=== PATIENT | male | born 1960 | race Caucasian/White ===

== ENCOUNTER 2021-06-09 11:51 | Outpatient (CLI) | payer OTHER, SELFPAY ==
[2021-06-09 12:00] VITALS: BMI 29.3
--- NOTE | 2021-06-09 12:54 | ECG_ITS ---
[facility] Test Date: 2021-06-09 Pat Name: Axel Ramesh Department: Room: Gender: Male Business Process Coordinator: : 1960 Requested By: Marielena Hurtado Order Number: [id number] Barreto MD: Shanae Avelar M.D. Interpretive Statements NAME OF STUDY: TREADMILL STRESS TEST INDICATION: Family hx of cad Baseline blood pressure of 105/84 mm Hg, heart rate of 71 beats per minute and oxygen saturation of 95%. EKG showed with normal ST-Ts. The patient exercised for 8 minutes 25 seconds on a standard Roel protocol. Patient attained a maximum heart rate of 157 beats per minute(98% of the maximum predicted heart rate) with a blood pressure at the peak exercise of 159/72 mm Hg and oxygen saturation of 96%. The EKG at the peak exercise revealed sinus tachycardia with half millimeter upsloping ST depression in inferolateral leads not meeting diagnostic criteria for ischemia. Patient did not have any chest pain or any significant arrhythmis with the exercise. Study was terminated due to exertional fatigue and shortness of breath. During the recovery phase, there were no new changes. Blood pressure at the end of the recovery phase was 111/83 mm Hg with a heart rate of 88 beats per minute and oxygen saturation of 96%. CONCLUSION: 1. Normal EKG response to treadmill exercise 2. No exercise-induced chest pain or cardiac arrhythmia 3. Good exercise tolerance, attained a maximum of 10.2 METs. Maximum VO2 35.7 mL/kg/min. 4. Baseline normal blood pressure] with normal response to exercise. 5. Dasilva treadmill score of 6. This is suggestive of low risk. Electronically Signed On 06-13-2021 11:06:42 CDT by Shanae Avelar M.D. [id number]
[2021-06-09 13:48] VITALS: BP 111/73; PULSE 73
== END 2021-06-09 11:52 | disposition home or self-care (01) ==
LOC: CDL 11:54
PROVIDERS: PCP Nurse Practitioner Family; Visit Provider Nurse Practitioner
DX: I11.9 Hypertensive heart disease without heart failure (principal)
CPT/HCPCS: 93017

== ENCOUNTER → 2021-09-26 12:02 | Outpatient (BNVA) | payer OTHER, SELFPAY | PROVIDERS: PCP Nurse Practitioner Family; Visit Provider Surgery | DX: R19.5 Other fecal abnormalities (principal) | CPT/HCPCS: 87635 ==

== ENCOUNTER 2021-09-28 06:11 | Day surgery (SDC) | payer OTHER, SELFPAY ==
[2021-09-26 09:23] VITALS: BMI 28.8
[2021-09-28 06:27] VITALS: BP 120/72; PULSE 71; RESP 16; TEMP 36.4; O2SAT 97
--- NOTE | 2021-09-28 06:35 | P.HP_ITS ---
Same Day Surgery H&P Indication for Procedure/HPI DATE OF PROCEDURE: September 28, 2021 CHIEF COMPLAINT/INDICATIONFOR SURGICAL PROCEDURE: Blood in stool PREOP DIAGNOSIS: Screening colonoscopy PLANNED PROCEDRUE: Operation Date: 09/28/21 07:00 Proposed Procedures p Colonoscopy 906263 R19.5(Not Applicable) - Mehrdad Hightower MD 08/04/2021 This is a pleasant 61 years old gentleman never had a colonoscopy before. Patient reports no change in bowel movements or nonintentional weight loss and he was tested for occult blood in stool, patient is referred for colonoscopy. Interim history 09/28/2021 Patient comes today for screening colonoscopy ROS All systems have been reviewed negative except as per the above or per problem list Medications/Allergies* Home Medications Medication Instructions Recorded Confirmed Type lisinopril 10 1 tab PO DAILY 08/04/21 09/28/21 History mg-hydrochlorothiazide 12.5 mg tablet metformin 500 mg tablet 500 mg PO DAILY 08/04/21 09/28/21 History omega-3 fatty acids 500 mg capsule 500 mg PO DAILY 08/04/21 09/28/21 History aspirin [Aspir-81] 81 mg PO DAILY 09/26/21 09/26/21 History Allergies/Adverse Reactions Allergy/AdvReac Type Severity Reaction Status Date / Time No Known Allergies Allergy Verified 09/28/21 06:35 Pertinent History/Comorbid Conditions* Family History (Updated 06/09/21 @ 13:50 by Jose Guadalupe Medel RN) CAD (coronary artery disease) Social History Smoking and tobacco status: never smoked Pertinent Exam Findings alert, oriented x 3, regular rate & rhythm and procedure specific exam findings (Abdominal examination nontender nondistended soft) Recommendations Surgery/Procedure today (Colonoscopy with possible biopsy) Other Plans: Plan of care; After thorough history and physical examination and reviewing the chart, plan to perform screening colonoscopy. I discussed with the patient in details the risks,benefits,alternatives and indications.The risk of aspiration, bleeding, soft tissue injury, perforation of the colon and other potential concomitant complications were explained to the patient in details,also the potential need for Laproscoy/Laparotomy to repair any related complications including but not limited to colectomy and or Closotomy.The patient understood this well and did agree to proceed. Rationale was carefully and clearly discussed with the patient.Appropriate informed consent have been reviewed and signed All questions have been answered and all concerns have been addressed to patient's satisfaction. 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
[2021-09-28] MEDS: sodium chloride 0.9% 1,000 ML 30 ML IV (06:36)
--- NOTE | 2021-09-28 06:56 | ANES.PREANE2 ---
Pre-Anesthetic Assessment Pre-Anesthetic Assessment: Height/Weight: Height 1.75 m Weight 88.451 kg Temp Pulse Resp BP Pulse Ox 97.6 F 71 16 120/72 97 09/28/21 06:27 09/28/21 06:27 09/28/21 06:27 09/28/21 06:27 09/28/21 06:27 Preop Diagnosis: Screening colonoscopy Proposed Procedure: Operation Date: 09/28/21 07:00 Proposed Procedures p Colonoscopy 272141 R19.5(Not Applicable) - Mehrdad Hightower MD Was Beta German taken within 24 hours: N/A Was Clonidine taken within 24 hours: N/A Last intake: Intake Last Liquid Date 09/27/21 Last Liquid Time 20:00 Last Solid Date 09/26/21 Last Solid Time 00:00 Social: Social History: No alcohol and No tobacco Exam: Pre-Anes Outpt Exam: alert, oriented x 3, clear to auscultation bilaterally and regular rate & rhythm Airway: Submandibular: WNL Cervical ROM: WNL MP: 2 Dentition: Full History/ROS: No significant history except as noted and No significant complaints Pulmonary: Pulmonary: None reported CV/HEM: CV/HEM: HTN : : None reported Hepatic: Hepatic: None reported GI: GI: None reported Metabolic: Metabolic: None reported Musc/skel: Musc/skel: None reported Neuropsych: Neuropsych: None reported Anesthetic Plan: ASA status: 2 Anesthesia: Anesthesia Evaluation and MAC Risk of > 500 ml blood loss (7ml/kg in children): No Meds/Allergies Current Medications: Current Medications Generic Name Dose Route Start Last Admin Trade Name Freq PRN Reason Stop Dose Admin Sodium Chloride 1,000 mls @ 30 ml s/hr 09/28/21 06:15 09/28/21 06:36 Sodium Chloride 0.9% IV 30 mls/hr .Q24H SUMAN Administration PFSH Anesthesia PFSH: Family History Other CAD (coronary artery disease) Social History Smoking and tobacco status: never smoked Data Anesthesia Cardiac Studies: No Data to Display
[2021-09-28 07:18] VITALS: BP 96/67; PULSE 76; RESP 16; TEMP 36.3; O2SAT 97
[2021-09-28 07:32] VITALS: BP 115/71; PULSE 67; RESP 18; O2SAT 95
--- NOTE | 2021-09-28 14:59 | ANE.PACU2 ---
Inpatient post-anesthesia follow up: Airway intact: Yes Vital signs: Temperature 97.3 F Pulse Rate 67 Respiratory Rate 18 Blood Pressure 115/71 Pulse Oximetry 95 Oxygen Delivery Me thod Room Air Oxygen Flow Rate Fraction of Inspir ed Oxygen Hydration adequate: Yes Nausea and vomiting: No Pain level: 1 Mental status: Baseline
== END 2021-09-28 07:48 | disposition home or self-care (01) ==
PROVIDERS: PCP Nurse Practitioner Family; Visit Provider Surgery
PROC: 0DJD8ZZ Inspection of Lower Intestinal Tract, Via Natural or Artificial Opening Endoscopic (ICD-10-PCS; CPT 45378; principal; 2021-09-28 07:00)
DX: R19.5 Other fecal abnormalities (principal); Z79.84 Long term (current) use of oral hypoglycemic drugs; Z79.82 Long term (current) use of aspirin; Z82.49 Family history of ischemic heart disease and other diseases of the circulatory system; K57.30 Diverticulosis of large intestine without perforation or abscess without bleeding; I10 Essential (primary) hypertension
CPT/HCPCS: 45378; 96360; J2370; J2704; J7030

== ENCOUNTER → 2022-07-13 14:51 | Outpatient (BNVA) | payer OTHER, SELFPAY | PROVIDERS: PCP Nurse Practitioner Family; Visit Provider Surgery | DX: R13.10 Dysphagia, unspecified (principal) | CPT/HCPCS: 99213 ==

== ENCOUNTER → 2022-07-26 12:52 | Outpatient (BNVA) | payer OTHER, SELFPAY | PROVIDERS: PCP Nurse Practitioner Family; Visit Provider Specialist | DX: M25.561 Pain in right knee (principal) | CPT/HCPCS: 73560; 73565; 99203; 99204 ==

== ENCOUNTER 2022-08-30 10:37 | Outpatient (CLI) | payer OTHER, SELFPAY ==
--- NOTE | 2022-08-30 11:00 | FL_ITS ---
WS: [id number] MODIFIED BARIUM SWALLOW HISTORY: Difficulty swallowing. FLUOROSCOPY TIME: 2min [id number] # of spot films: 0 Modified barium swallow was performed by the speech pathologist. Fluoroscopy was provided with the pa tient in a lateral projection. Multiple food consistencies were provided. Patient swallowed all food consistencies without difficulty. No aspiration or laryngeal penetration w ith any of the food consistencies. Patient swallowed the barium tablet without difficulty. In the mid to distal esophagus there is delayed emptying and poor contraction of the esophagus. The barium tabl et did not pass readily through the distal esophagus due to the retained barium mixture. No stricture was evident. FL/FL barium swallow modifd 80532 IMPRESSION: 1. No aspiration or laryngeal penetration. 2. 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 Delayed emptying of the esophagus increasing the patient's risk for aspiration . Please see speech therapist report also for recommendations.
== END 2022-08-30 10:38 | disposition home or self-care (01) ==
LOC: RAD 10:40
PROVIDERS: PCP Nurse Practitioner; Visit Provider Surgery
DX: R13.10 Dysphagia, unspecified (principal)
CPT/HCPCS: 74230; 92611

== ENCOUNTER 2022-09-07 06:32 | Day surgery (SDC) | payer OTHER, SELFPAY ==
[2022-09-05 15:28] VITALS: BMI 26.9
--- NOTE | 2022-09-07 06:37 | P.HP_ITS ---
Same Day Surgery H&P Indication for Procedure/HPI DATE OF PROCEDURE: September 07, 2022 CHIEF COMPLAINT/INDICATIONFOR SURGICAL PROCEDURE: problem with swallowing PREOP DIAGNOSIS: Dysphagia PLANNED PROCEDURE: Operation Date: 09/07/22 08:00 Proposed Procedures p EGD Dilation W/ Balloon 53092,R13.10(Not Applicable) - Mehrdad Hightower MD 07/13/2022 This is a pleasant 62 years old gentleman comes today escorted by his and reports worsening difficulty in swallowing associated with a component of odynophagia has been going on for few years but is getting worse and he feels food can get stuck down his throat. Patient is referred to my practice with history of dysphagia.? Has been Progressive in nature,, no history of stroke, no history of esophageal trauma or neck radiation or neck cancer.? No history of dentures, personal or family history of esophageal cancer No Associated symptoms nausea, vomiting, hemoptysis or hematemesis.Except for pain. Previous speech pathology evaluation or endoscopies or swallow studies or previous esophageal dilations or esophageal surgery 09/07/2022 Patient comes today for diagnostic EGD. Modified barium swallow was done on 08/30/2022 that did show; 1.? No aspiration or laryngeal penetration. 2.? 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 Delayed emptying of the esophagus increasing the patient's risk for aspiration. ? ROS All systems have been reviewed negative except as for the above or per problem list. Medications/Allergies* Home Medications Medication Instructions Recorded Confirmed Type lisinopril 10 1 tab PO DAILY 08/04/21 09/05/22 History mg-hydrochlorothiazide 12.5 mg tablet omega-3 fatty acids 500 mg capsule 500 mg PO DAILY 08/04/21 09/05/22 History aspirin 81 mg tablet,delayed 81 mg PO DAILY 09/26/21 09/05/22 History release cholecalciferol (vitamin D3) 25 25 mcg PO BID 07/13/22 09/05/22 History mcg (1,000 unit) capsule metformin 500 mg tablet 500 mg PO .4 tabs day 07/13/22 09/05/22 History sitagliptin 25 mg tablet (Januvia) 25 mg PO DAILY 07/13/22 09/05/22 History Allergies/Adverse Reactions Allergy/AdvReac Type Severity Reaction Status Date / Time No Known Allergies Allergy Verified 09/07/22 06:44 Pertinent History/Comorbid Conditions* Medical History (Updated 07/15/22 @ 16:56 by Mehrdad Hightower MD) Diverticulosis Occult blood positive stool Family History (Updated 06/09/21 @ 13:50 by Jose Guadalupe Medel RN) CAD (coronary artery disease) Social History Smoking and tobacco status: former smoker Pertinent Exam Findings alert, oriented x 3, regular rate & rhythm and procedure specific exam findings ( abdominal exam nontender nondistended soft) Recommendations Surgery/Procedure today (EGD with possible biopsy) 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
[2022-09-07 06:48] VITALS: BP 106/80; PULSE 61; RESP 18; TEMP 36.2; O2SAT 95
[2022-09-07] MEDS: sodium chloride 0.9% 1,000 ML 30 ML IV (06:58)
--- NOTE | 2022-09-07 06:58 | ANES.PREANE2 ---
Pre-Anesthetic Assessment Height/Weight: Height 1.75 m Weight 82.554 kg Temp Pulse Resp BP Pulse Ox 97.1 F L 61 18 106/80 95 09/07/22 06:48 09/07/22 06:48 09/07/22 06:48 09/07/22 06:48 09/07/22 06:48 Preop Diagnosis: Dysphagia Operation Date: 09/07/22 08:00 Proposed Procedures p EGD Dilation W/ Balloon 52837,R13.10(Not Applicable) - Mehrdad Hightower MD Was Beta German taken within 24 hours: N/A Was Clonidine taken within 24 hours: N/A Last intake: Intake Last Liquid Date 09/06/22 Last Liquid Time 22:00 Last Solid Date 09/06/22 Last Solid Time 22:00 Social No alcohol and No tobacco Exam alert, oriented x 3, clear to auscultation bilaterally and regular rate & rhythm Airway Submandibular: within normal limits Cervical ROM: within normal limits Mallampati: Class II Dentition: full History/ROS No significant history except as noted and No significant complaints Pulmonary None reported CV/HEM Hypertension None reported Hepatic None reported GI None reported Metabolic Diabetes Mellitus [facility] [place] None reported Neuropsych None reported Anesthetic Plan ASA status: 2 Anesthesia: Anesthesia Evaluation and MAC Risk of > 500 ml blood loss (7ml/kg in children): No Medications/Allergies Home Medications Medication Instructions Recorded Confirmed Last Taken Type lisinopril 10 1 tab PO DAILY 08/04/21 09/07/22 09/06/22 History mg-hydrochlorothiazide 12.5 mg tablet omega-3 fatty acids 500 mg capsule 500 mg PO DAILY 08/04/21 09/07/22 09/06/22 History aspirin 81 mg tablet,delayed 81 mg PO DAILY 09/26/21 09/07/22 09/05/22 History release cholecalciferol (vitamin D3) 25 25 mcg PO BID 07/13/22 09/07/22 09/06/22 History mcg (1,000 unit) capsule metformin 500 mg tablet 500 mg PO .4 tabs day 07/13/22 09/07/22 09/06/22 History sitagliptin 25 mg tablet (Januvia) 25 mg PO DAILY 07/13/22 09/07/22 09/06/22 History Allergies Allergy/AdvReac Type Severity Reaction Status Date / Time No Known Allergies Allergy Verified 09/07/22 06:44 [facility] Anesthesia Medical History Diverticulosis Occult blood positive stool Family History Other CAD (coronary artery disease) Social History Smoking and tobacco status: former smoker Data Anesthesia Cardiac Studies: No Data to Display
[2022-09-07 07:13] LABS: Glucose Point of Care 117 mg/dL (70-110)
[2022-09-07 08:03] VITALS: BP 103/67; PULSE 68; RESP 18; TEMP 36.2; O2SAT 96
[2022-09-07 08:08] VITALS: BP 98/67; PULSE 66; RESP 16; O2SAT 94
[2022-09-07 08:18] VITALS: BP 107/78; PULSE 63; RESP 18; O2SAT 95
--- NOTE | 2022-09-07 15:18 | ANE.PACU2 ---
Inpatient post-anesthesia follow up: Airway intact: Yes Vital signs: Temperature 97.2 F Pulse Rate 63 Respiratory Rate 18 Blood Pressure 107/78 Pulse Oximetry 95 Oxygen Delivery Me thod Room Air Oxygen Flow Rate Fraction of Inspir ed Oxygen Hydration adequate: Yes Nausea and vomiting: No Pain level: 1 Mental status: Baseline
== END 2022-09-07 08:40 | disposition home or self-care (01) ==
PROVIDERS: PCP Nurse Practitioner; Visit Provider Surgery
PROC: 0DJ08ZZ Inspection of Upper Intestinal Tract, Via Natural or Artificial Opening Endoscopic (ICD-10-PCS; CPT 43235; principal; 2022-09-07 08:00)
DX: R13.10 Dysphagia, unspecified (principal); Z87.891 Personal history of nicotine dependence; K21.00 Gastro-esophageal reflux disease with esophagitis, without bleeding; K29.80 Duodenitis without bleeding; K29.50 Unspecified chronic gastritis without bleeding; I10 Essential (primary) hypertension; E11.9 Type 2 diabetes mellitus without complications; Z79.84 Long term (current) use of oral hypoglycemic drugs; Z79.82 Long term (current) use of aspirin
CPT/HCPCS: 36416; 43239; 82962; 88305; 88342; J2704; J7030

== ENCOUNTER → 2022-09-14 16:00 | Outpatient (BNVA) | payer OTHER, SELFPAY | PROVIDERS: PCP Nurse Practitioner; Visit Provider Surgery | DX: Z09 Encounter for follow-up examination after completed treatment for conditions other than malignant neoplasm (principal); R13.10 Dysphagia, unspecified; K21.9 Gastro-esophageal reflux disease without esophagitis | CPT/HCPCS: 99212 ==

== ENCOUNTER 2022-09-15 11:36 | Outpatient (CLI) | payer OTHER, SELFPAY ==
--- NOTE | 2022-09-15 11:45 | MR_ITS ---
WS: [id number] MRI RIGHT KNEE HISTORY: Pain and instability for one year. COMPARISON: 07/26/2022 Anterior cruciate ligament: Mucoid degeneration in the ACL. No full-thickness tear. Posterior cruciate ligament: Intact. Medial collateral ligament: Very small amount of fluid adjacent to the distal MCL. No full-thickness tear. Posterior lateral corner structures: Intact. Medial menisci: Complex tear in the posterior horn extends to the superior and inferior articular anna faces. There is additional signal abnormalities extending to the posterior meniscus. Horizontal compo nent extends to the free edge. Lateral meniscus: Intact. Normal signal, size and shape. Extensor mechanism: Distal quadriceps tendon and patellar tendons are intact. Fluid and soft tissue: Small joint effusion. There is a very large lobulated Earl's cyst extending o adelita length of 9 cm. Osseous and articular structures: Patellofemoral compartment: Minimal narrowing of patellofemoral joint. No marrow edema in the patella . Medial compartment: Mild narrowing medial compartment. There is moderate chondromalacia throughout th e weightbearing surface femoral condyle and along the tibial plateau. There are a few very superficia l subchondral changes in the femoral condyle. Lateral compartment: Mild chondromalacia along the weightbearing surface femoral condyle and tibial p lateau. No full-thickness cartilage defects. No marrow edema or fracture. MR/MR knee RT wo con* [id number] IMPRESSION: 1. Small joint effusion. 2. Large lobulated Earl's cyst. 3. Complex tear posterior horn medial meniscus. Horizontal component extends t o the intra-articular surface towards the free edge. 4. Mild narrowing of the medial and lateral compartments. 5. Mild chondromalacia in the medial and lateral compartments but greatest inv olving the medial compartment. 6. Mild MCL sprain.
== END 2022-09-15 11:37 | disposition home or self-care (01) ==
LOC: RAD 11:37
PROVIDERS: PCP Nurse Practitioner; Visit Provider Specialist
DX: M25.461 Effusion, right knee; M71.21 Synovial cyst of popliteal space [Baker], right knee; S83.8X1A Sprain of other specified parts of right knee, initial encounter; X58.XXXA Exposure to other specified factors, initial encounter; M94.261 Chondromalacia, right knee
CPT/HCPCS: 73721

== ENCOUNTER → 2022-11-08 13:13 | Outpatient (BNVA) | payer OTHER, SELFPAY | PROVIDERS: PCP Nurse Practitioner; Visit Provider Specialist | DX: M17.11 Unilateral primary osteoarthritis, right knee (principal) | CPT/HCPCS: 20610; 99213; J7326 ==

== ENCOUNTER → 2023-02-15 10:30 | Outpatient (BNVA) | payer OTHER, SELFPAY | PROVIDERS: PCP Nurse Practitioner; Visit Provider Specialist | DX: M17.11 Unilateral primary osteoarthritis, right knee (principal); Z71.89 Other specified counseling | CPT/HCPCS: 20610; J1100; J2795; J3301 ==

== ENCOUNTER → 2023-05-24 14:43 | Outpatient (BNVA) | payer OTHER, SELFPAY | PROVIDERS: PCP Nurse Practitioner; Visit Provider Specialist | DX: M17.11 Unilateral primary osteoarthritis, right knee; Z71.89 Other specified counseling | CPT/HCPCS: 20610; J7326 ==